=== PATIENT | female | born 1935 | race Caucasian/White ===

== ENCOUNTER 2019-03-19 07:46 | Inpatient (IN) | payer OTHER ==
[~2019-03-19] VITALS: Ht 165.1 cm; Wt 112.9 kg
[~2019-03-19 07:46] MED LIST: FUROSEMIDE40 MG PO; KETOROLAC TROME10 MG PO; LAC PO; LEVOFLOXACIN500 M1 PO; LOPRESSOR50 MG PO; NOR10T PO; POTASSIUM CHLO20 ME1 PO; XARELTO20 M1 PO; ZESTRIL5 MG PO
[2019-03-19 07:47] VITALS: Ht 165.1 cm; Wt 112.9 kg
--- NOTE | 2019-03-19 07:52 | NUR ---
PT BIB [facility] FOR C/O CP AND SOB, PER MEDICS PT HAS HAD RECENT BRONCHITIS, CP AND SOB TODAY, PRODUCTIVE COUGH WITH WHITE PHLEGM, DENIES CP AT THIS TIME. PT AAOX4 NO DISTRESS AFIB ON CM. PT PLACED ON FULL CM, O2 AT 2L NC DR CRUZ AT BEDSIDE FOR MSE
--- NOTE | 2019-03-19 08:07 | NUR ---
PT ON ROOM AIR PER DR CRUZ'S ORDERS FOR ABG BLOOD DRAW. RT NOTIFIED
--- NOTE | 2019-03-19 08:35 | NUR ---
BREATHING TX COMPLETED, PT MEDICATED PER MD ORDERS SEE EMAR
--- NOTE | 2019-03-19 08:40 | NUR ---
PATIENT HAD OPTIMAL PREFORMANCE OF PEAK FLOW, PRE HHN TX 100% OF PREDICTED VAULE. WILL CONT. TO MONITOR.
[2019-03-19 08:57] LABS: CALCIUM 9.3 mg/dL (8.5-10.1); CARBON DIOXIDE 28.6 mmol/L (21-32); CHLORIDE SERUM 101 mmol/L (98-107); CREATININE SERUM 1.5 mg/dL (0.6-1.0); GLUCOSE SERUM 108 mg/dL (74-106); SODIUM SERUM 136 mmol/L (136-145)
[2019-03-19 09:09] LABS: ALKALINE PHOSPHATASE 65 U/L (46-116); ALT/SGPT 16 U/L (14-59); AST/SGOT 23 U/L (15-37); BILIRUBIN TOTAL 1.5 mg/dL (0.20-1.00); LIPASE 173 IU/L (73-393); T4(THYROXINE) 6.8 ug/dL (4.7-13.3); TOTAL PROTEIN, SERUM 7.9 g/dL (6.4-8.2)
[2019-03-19 09:10] LABS: CHOLESTEROL 123 mg/dL (<200); HDL CHOLESTEROL 29 mg/dL (40-60)
[2019-03-19 09:25] LABS: BASOPHIL % 0.3 % (0-2); PLATELET COUNT 224 x10^3mcL (130-400); RED CELL DISTRIBUTION WIDTH 16.9 % (11.5-14.5)
--- NOTE | 2019-03-19 10:12 | NUR ---
STRAIGHT CATH DONE TO OBTAIN URINE SAMPLE. TOLERATED WELL BY PT, SPECIMEN COLLECTED AND SENT TO LAB
--- NOTE | 2019-03-19 10:15 | NUR ---
lab at bedside for blood draw
[2019-03-19 10:47] LABS: UA SPECIFIC GRAVITY 1.025 (1.005-1.035); microscopic required? YES; urine erythrocyte TRACE (NEGATIVE)
[2019-03-19] MEDS ORDERED: ELIQUIS2.5 MG PO (10:52)
[2019-03-19] MEDS ORDERED: BENZONATATE200 MG PO (10:53)
[2019-03-19] MEDS ORDERED: LASIX40 MG PO (10:53)
[2019-03-19] MEDS ORDERED: VITAMIN D250 MCG PO (10:54)
[2019-03-19] MEDS ORDERED: POTASSIUM CHLO20 ME1 PO (10:54)
[2019-03-19] MEDS ORDERED: METOPROLOL TART50 MG PO (10:54)
[2019-03-19] MEDS ORDERED: LISINOPRIL2.5 MG PO (10:54)
--- NOTE | 2019-03-19 10:59 | NUR ---
REPORT GIVEN TO GLADIS HELM RESUMING CARE OF PT IN TELE FLOOR
--- NOTE | 2019-03-19 11:10 | NUR ---
SPOKE TO KAHLIL LEAD INSTRUCTOR/FLIGHT ATTENDANT FOR [facility]. PER [facility] IS NOT CONTRACTED THEREFORE PT NEEDS TO BE TRANSFERRED TO [facility]. ER ADVISED DR CRUZ STATES PT IS UNSTABLE FOR TRANSFER KAHLIL MADE AWARE. KAHLIL TO ARRANGE DANA LEWIS TO CALL DR CRUZ FOR FURTHER INFORMATION AND POC OF PT.
--- NOTE | 2019-03-19 11:13 | NUR ---
KAHLIL LAUNDROMAT MANAGER ASKED TO SPEAK WITH PT, I TRANSFERRED CALL TO CORDLESS PHONE PT ON THE LINE WITH KAHLIL.
--- NOTE | 2019-03-19 11:22 | NUR ---
PT TAKEN TO TELE FLOOR. PT AAOX4 NO DISTRESS AT THIS TIME. PT PLACED ON PORTABLE CM, IVF INFUSION TO BE RESUMED BY VISITING HOUSEKEEPER, IV SITE PATENT. PT DENIES ANY PAIN, MARTHA HELM AND JERALD EMT ACCOMPANIED THE PT WELL PTS SON.
--- NOTE | 2019-03-19 11:38 | NUR ---
RECEIVED PT FROM ER BY SKYLAR. PT ACCOMPANIED BY FAMILY. PT AWAKE, ALERT. A/OX4. PT ON 2LNC WITH NO RESP DISTRESS NOTED. O2 SAT 92% AT THIS TIME. PT ON TELE 32, DENIES CHEST PAIN AT THIS TIME. PERIPHERAL PULSES PALPABLE, NO EDEMA NOTED. IV ACCESS RAC, CDI INFUSING NS AT 126ML/HR AND LEVAQUIN IVPB FROM ER. ACTIVE BS NOTED. PT DENIES ISSUES WITH ELIMINATION AT THIS TIME. PT AMBULATORY WITH WALKER. PT ORIENTED TO ROOM. SAFETY MEASURES IN PLACE, BED LOW AND LOCKED. CALL LIGHT WITHIN REACH.
[2019-03-19 11:48] LABS: AMPHETAMINE QUAL UR NONE DETECTED (See below)
--- NOTE | 2019-03-19 12:00 | NUR ---
[facility] COLLECTED FOR LAB
[2019-03-19] MEDS ORDERED: LATANOPROST2.5 ML OU ×2 (13:01→13:02)
[2019-03-19] MEDS ORDERED: TIMOPTIC OCUMET10 ML OU (13:01)
[2019-03-19] MEDS ORDERED: PETROLATUM (13:03)
--- NOTE | 2019-03-19 13:30 | NUR ---
RECEIVED TELEPHONE ORDERS FROM DR SUBRAMANIAN TO CONTINUE PT HOME MEDICATIONS, START ROCEPHIN 1GRAM IVPB DAILY, AND START DUONEB Q 6 HOURS.
[2019-03-19 13:50] VITALS: BP 103/51
--- NOTE | 2019-03-19 15:20 | NUR ---
PT ALLERGIC TO KEFLEX, PER PHARMACY ROCEPHIN IS SAME CLASSIFICATION. DR. MARILYNN BUTCHER, NEW TELEPHONE ORDER FOR LEVAQUIN 500MG IVPB DAILY. PER PHARMACY, ELIQUIS IS TAKEN BID NOT ONCE A DAY. DR. MARILYNN BUTCHER, NEW ORDER TO CHANGE ELIQUIS TO BID.
--- NOTE | 2019-03-19 16:18 | NUR ---
SPOKE WITH PHARMACY REGARDING DOSAGE OF ELIQUIS BID. PER PT SHE IS CONCERNED WITH NOSEBLEEDS. PT REPORTS HAVING 11 NOSEBLEEDS. PT WOULD PREFER TO KEEP DOSAGE ONCE A DAY PREVIOUSLY TAKEN. WILL INFORM DR. SUBRAMANIAN.
--- NOTE | 2019-03-19 16:50 | NUR ---
PT REPORTS FEELING WEAKER. VS: BP 96/47(71) HR 78, O2 SAT 93% ON 2LNC. NITRO BID REMOVED FROM PT CHEST AT THIS TIME. PT DENIES CHEST PAIN. PT HEAD POSITIONED LOW WITH LEGS ELEVATED. WILL RE CHECK BP AND MONITOR.
[2019-03-19 17:34] VITALS: BP 98/48
--- NOTE | 2019-03-19 18:49 | NUR ---
PT STABLE AT THIS TIME. ALL NEEDS TENDED TO THROUGHOUT SHIFT. WILL CONTINUE TO MONITOR AND ENDORSE CARE TO QUALITY PROJECT MANAGER.
[2019-03-19 19:25] VITALS: BP 113/50
--- NOTE | 2019-03-19 19:25 | NUR ---
RECEIVED PT AWAKE ALERT AND VERBALLY RESPONSIVE .[place].WEARING PRESCRIPTION GLASSES.BREATHING EASY AND NON-LABORED.O2 @ 4L/MIN VIA N/C.ON AND OFF PRODUCTIVE COUGHING TO WHITISH PHLEGM.ASSISTED TO BR AND AMBULATED TO BR WITH FWW.VOIDED AND ASSISTED BACK TO BED AND WELL TOLERATED.TRACED EDEMA TO BLE.IVF BOLUS # 2 INFUSING AND TOLERATING WELL.ENCOURAGED TO CALL FOR ASSISTANCE AT ALL TIMES.WILL CONTINUE TO MONITOR.
[2019-03-20 04:29] VITALS: BP 119/52
--- NOTE | 2019-03-20 04:41 | NUR ---
PT SLEPT WELL ALL NIGHT.BREATHING EASY AND NON-LABORED.O2 DECREASED @ 2L/MIN VIA HUMIDIFIED AIR D/T DRYNESS OF THE NOSE.ON AND OFF COUGHING NOTED TO WHITISH PHLEGM.ON RT PROTOCOL .BREATHING TX GIVEN ORDERED.ALL NEEDS MET.WILL CONTINUE TO MONITOR.
[2019-03-20 07:02] LABS: BASOPHIL % 0.2 % (0-2); PLATELET COUNT 184 x10^3mcL (130-400)
--- NOTE | 2019-03-20 07:30 | NUR ---
RECEIVED PT FROM SECOND RIDE FARE COLLECTOR RN. Miguelito/BRIDGETTE. TELE#32. DENIES CHEST PAIN/PRESSURE. RESPIRATIONS EQUAL AND UNLABORED ON 2L HUMIDIFIED O2. PT DENIES ANY SOB AT THIS TIME. PT STILL HAVING COUGH PRODUCTIVE WITH CLEAR MUCUOUS. IV TO RAC SALINE LOCKED. NO REDNESS OR SWELLING NOTED. PT DENIES ANY PAIN AT THIS TIME. PT ABLE TO REPOSITION SELF IN BED. WILL CONTINUE TO MONITOR. CALL LIGHT IN REACH. BED IN LOWEST POSITION.
[2019-03-20 07:31] LABS: CARBON DIOXIDE 25.4 mmol/L (21-32); CHLORIDE SERUM 106 mmol/L (98-107); CREATININE SERUM 1.4 mg/dL (0.6-1.0); GLUCOSE SERUM 117 mg/dL (74-106); POTASSIUM SERUM 4.3 mmol/L (3.5-5.1); SODIUM SERUM 141 mmol/L (136-145)
[2019-03-20 08:07] VITALS: BP 106/43
[2019-03-20 08:35] LABS: RED CELL DISTRIBUTION WIDTH 16.9 % (11.5-14.5)
--- NOTE | 2019-03-20 10:12 | NUR ---
PT SITTING UP IN BED. PT TEARFUL AND UPSET. PT STATES SHE DID NOT GET MUCH SLEEP DUE TO BEING UNCOMFORTABLE. ASSISTED PT WITH REPOSITIONING IN BED WITH HOB ELEVATED ON RIGHT SIDE. GIVEN PO MEDS. TOLERATED WELL. BLOOD PRESSURE CHECKED WAS 102/59 RIGHT ARM, HR 77. O2 SAT 94% ON 2L NC. WILL CONTINUE TO MONITOR. CALL LIGHT IN REACH. BED IN LOWEST POSITION.
--- NOTE | 2019-03-20 10:29 | NUR ---
SPOKE WITH SIENNA DIRECTOR REACTOR PROJECTS WITH PT INSURANCE. PER SIENNA IF DR. MONTERO IS WILLING CAN ARRANGE FOR SNF WITH IV ANTIBIOTICS AND PHYSICAL THERAPY. PT ASKED IF AGREEABLE TO SNF PLACEMENT, PT REFUSING AT THIS TIME. CALLED SIENNA DIRECTOR REACTOR PROJECTS WITH [facility], INFORMED SIENNA PT IS REFUSING SNF PLACEMENT.
--- NOTE | 2019-03-20 11:30 | NUR ---
PT SITTING UP IN BED. PT IN BETTER SPIRITS NOW. PT NO LONGER TEARFUL. SON AT BEDSIDE, GIVEN UPDATED ON POC. IV TO RAC FLUSHED WELL. IV ANTIBIOTIC INFUSING ORDERED. GIVEN PO MEDS. TOLERATED WELL. PT REPOSITIONED TO SIDE WITH PILLOW ON BACK. WILL CONTINUE TO MONITOR. CALL LIGHT IN REACH. BED IN LOWEST POSITION.
[2019-03-20 12:20] VITALS: BP 127/50
--- NOTE | 2019-03-20 14:13 | NUR ---
PT NOW AGREEABLE TO SNF. SPOKE WITH DOMINICK TO FLIGHT SOFTWARE TEST ENGINEER PER DOMINICK TO WOULD NEED ORDERS FOR ARRANGEMENT FOR SNF WITH IV ANTIBIOTICS WITH DOSE, FREQUENCY AND DURATION WELL PHYSICAL THERAPY. PER DOMINICK TO ONCE ORDER IS PLACED WILL UPDATE [facility] TO SET UP PLACEMENT FOR TOMORROW. PAGED DR. MONTERO, AWAITING CALL BACK.
[2019-03-20 16:55] VITALS: BP 122/60
[2019-03-20 19:05] VITALS: BP 96/40
--- NOTE | 2019-03-20 19:05 | NUR ---
RECEIVED PT AWAKE ALERT AND VERBALLY RESPONSIVE WITH FAMILY MEMBER AT BEDSIDE.BREATHING EASY AND NON-LABORED WITH ON AND OFF PRODUCTIVE COUGHING TO WHITISH PHLEGM.DIMINISHED BREATHSOUNDS.NO CONGESTION NOTED.DENIES CHESTPAIN.BP 96/40 MMHG,HR 81.REPORTS OF BLADDER INCONTINENCE TODAY D/T PT ON LASIX.INCONTINENT DERMATITIS TO ABDOMINAL FOLDS NOTED.TRACE EDEMA TO BLE.WILL CONTINUE TO MONITOR.
[2019-03-20 21:34] VITALS: BP 116/54
--- NOTE | 2019-03-20 21:34 | NUR ---
BP RECHECKED @ 116/54 MMHG,HR 88.ASSISTED TO BSC AND WELL TOLERATED.WILL CONTINUE TO MONITOR.
--- NOTE | 2019-03-21 04:41 | NUR ---
PT SLEPT WELL.BREATHING EASY AND NON-LABORED.O2 @ 2L HUMIDIFIED AIR.ON AND OFF PRODUCTIVE COUGHING NOTED. ASSISTED TO BSC AND TOLERATED WELL.ALL NEEDS MET.WILL CONTINUE TO MONITOR.
[2019-03-21 06:12] VITALS: BP 109/45
[2019-03-21 06:43] LABS: ALKALINE PHOSPHATASE 52 U/L (46-116); ALT/SGPT 13 U/L (14-59); AST/SGOT 23 U/L (15-37); BILIRUBIN TOTAL 0.85 mg/dL (0.20-1.00); CARBON DIOXIDE 26.3 mmol/L (21-32); CHLORIDE SERUM 107 mmol/L (98-107); CREATININE SERUM 1.5 mg/dL (0.6-1.0); GLUCOSE SERUM 96 mg/dL (74-106); SODIUM SERUM 142 mmol/L (136-145); TOTAL PROTEIN, SERUM 6.7 g/dL (6.4-8.2)
[2019-03-21 06:49] LABS: ALBUMIN 2.4 g/dL (3.4-5.0)
--- NOTE | 2019-03-21 07:10 | NUR ---
RECEIVED PT FROM ORNAMENTAL PLASTERER HELPER RN. Miguelito/BRIDGETTE. TELE#32. DENIES CHEST PAIN/PRESSURE. RESPIRATIONS EQUAL AND UNLABORED ON 2L NC. DENIES SOB AT THIS TIME. PT STILL C/O COUGH PRODUCTIVE. NO ACUTE RESP DISTRESS NOTED. PT DENIES ANY ABDOMINAL PAIN OR N/V AT THIS TIME. PT ABLE TO REPOSITION SELF IN BED. USING BEDSIDE COMMODE. IV TO RAC SALINE LOCKED. NO REDNESS OR SWELLING NOTED. WILL CONTINUE TO MONITOR. CALL LIGHT IN REACH. BED IN LOWEST POSITION.
[2019-03-21 07:11] LABS: BASOPHIL % 0.3 % (0-2); PLATELET COUNT 197 x10^3mcL (130-400)
[2019-03-21 07:49] LABS: RED CELL DISTRIBUTION WIDTH 17.2 % (11.5-14.5)
[2019-03-21 08:31] VITALS: BP 102/54
--- NOTE | 2019-03-21 08:38 | NUR ---
PT SITTING UP IN BED. PT C/O PAIN TO BACK. REPOSITIONED PT SITTING UP IN BED WITH PILLOW BEHIND BACK. PT VERBALIZED RELIEF. GIVEN PO MEDS. TOLERATED WELL. PT DENIES ANY SOB AT THIS TIME. PT 02 SAT 95% ON 2L NC. WILL CONTINUE TO MONITOR. CALL LIGHT IN REACH. BED IN LOWEST POSITION.
--- NOTE | 2019-03-21 09:30 | NUR ---
SPOKE WITH JOSSIE PHOTOGRAPH INSPECTOR WITH [facility], NIURKA SETHI FOUND SNF AT [facility] ROOM 17A. PER JOSSIE PLEASE CALL BACK ONCE DISCHARGE ORDER IS AVAILABLE. PT MADE AWARE. PT STATES "I WILL NOTIFY MY FAMILY."
[2019-03-21 10:01] VITALS: BP 102/54
[2019-03-21] MEDS ORDERED: LEVOFLOXACIN500 M1 PO (10:09)
[2019-03-21] MEDS ORDERED: PREDNISONE20 MG PO (10:09)
[2019-03-21] MEDS ORDERED: IPRATROPIUM BROM3 M2 HHN (10:10)
--- NOTE | 2019-03-21 10:41 | NUR ---
CALLED JOSSIE PET CARE ATTENDANT WITH [facility] REGARDING DISCHARGE ORDER. PER JOSSIE WILL CALL BACK WITH TRANSPORTATION INFORMATION.
[2019-03-21 11:10] VITALS: BP 102/54
--- NOTE | 2019-03-21 11:33 | NUR ---
PT SITTING UP IN BED. NO ACUTE RESP DISTRESS NOTED ON 2L NC. PT DENIES ANY PAIN AT THIS TIME. IV LEVAQUIN INFUSING TO LW INFUSING ORDERED. NO REDNESS OR SWELLING NOTED. SON AT BEDSIDE, AWARE OF TRANSFER. PT SIGNED DISCHARGE PAPERWORK AND TRANSFER AWKNOWLEDGMENT. ALL QUESTIONS AND CONCERNS ADDDRESSED. EXPLAINED WILL UPDATED ONCE WE HAVE TIME OF TRANSFER. WILL CONTINUE TO MONITOR. CALL LIGHT IN REACH. BED IN LOWEST POSITION.
[2019-03-21 12:16] VITALS: BP 112/61
--- NOTE | 2019-03-21 12:31 | NUR ---
CALLED JOSSIE WOOL CLEANER FROM [facility] REGARDING TRANSPORTATION. PER JOSSIE STILL WAITING FOR TRANSPORT SET UP. WILL CALL FLOOR BACK WITH TIME.
--- NOTE | 2019-03-21 13:00 | NUR ---
SPOKE WITH JOSSIE CLAY STAIN MIXER FROM [facility], TRANSPORT WILL BE SET UP WITH [employer] MECHANICAL DESIGN ENGINEER IS FOR 3 PM. WILL UPDATE PT AND FAMILY.
--- NOTE | 2019-03-21 15:30 | NUR ---
REPORT GIVEN TO HIMA AT [facility], [place]. ALL QUESTIONS AND CONCERNS ADDRESSED. CALL BACK NUMBER PROVIDED. [facility] AT BEDSIDE, PT TAKEN OFF FLOOR, NO PROBLEMS ENCOUNTERED.
== END 2019-03-21 15:30 | DRG 189 ==
LOC: ED 07:46 → DU 10:23
PROVIDERS: Emergency Medicine; Internal Medicine Pulmonary Disease; ADMIT Internal Medicine Pulmonary Disease
DX: J96.01 Acute respiratory failure with hypoxia (principal); J18.9 Pneumonia, unspecified organism; I48.20 Chronic atrial fibrillation, unspecified; Z68.41 Body mass index [BMI] 40.0-44.9, adult; J98.01 Acute bronchospasm; I50.9 Heart failure, unspecified
CPT/HCPCS: 36600; 83880; 94150; 97110-GP; 97112-GP; G0378; J1956; J2930; J7030; J7613; J7620; J7644; Q0092